=== PATIENT | female | born 1945 | race Asian ===

== ENCOUNTER 2017-01-05 21:44 | Emergency (ER) | payer OTHER ==
[~2017-01-05] VITALS: Ht 154.9 cm; Wt 72.7 kg
[~2017-01-05 21:44] MED LIST: AMLO10TA55 PO
[2017-01-05] MEDS ORDERED: ASPI-1093 PO (21:49)
[2017-01-05] MEDS ORDERED: SIMV20TA6 PO (21:49)
[2017-01-05] MEDS ORDERED: ONDANSETRON HCL 4 MG/2 ML VIAL IVP ONE (22:30)
[2017-01-05] MEDS ORDERED: KETOROLAC TROMETHAMINE 30 MG/ML VIAL IVP ONE (22:30)
[2017-01-05] MEDS ORDERED: HYDROmorphone 2 MG/ML SYRINGE IVP ONE (22:30)
[2017-01-05 22:44] LABS: BASOPHILS # (AUTO) 0.05 K/uL (0.00-0.20); BASOPHILS % (AUTO) 0.6 % (0.0-2.0); EOSINOPHILS # (AUTO) 0.23 K/uL (0.00-0.70); EOSINOPHILS % (AUTO) 2.78 % (1.0-6.0); HEMATOCRIT 42.8 % (36-46); HEMOGLOBIN 14.2 g/dL (12.0-16.0); LYMPHOCYTES # (AUTO) 2.6 K/uL (1.0-4.8); LYMPHOCYTES % (AUTO) 31.7 % (22.0-44.0); MEAN CORPUSCULAR HEMOGLOBIN 30.1 pg (26.0-34.0); MEAN CORPUSCULAR HGB CONC 33.3 G/dL (31.0-37.0); MEAN CORPUSCULAR VOLUME 91 fL (80-100); MONOCYTES # (AUTO) 0.7 K/uL (0.1-1.0); MONOCYTES % (AUTO) 8.9 % (2.0-9.0); NEUTROPHILS # (AUTO) 4.7 K/uL (1.8-7.7); PLATELET COUNT (AUTO) 173 K/uL (150-450); RED BLOOD CELL COUNT(AUTO) 4.72 MIL/uL (4.00-5.20); RED CELL DISTRIBUTION WIDTH 13.8 % (11.5-14.5); WHITE BLOOD COUNT (AUTO) 8.3 K/uL (4.5-11.0)
[2017-01-05 22:57] LABS: BILIRUBIN,TOTAL 0.4 mg/dL (0.1-1.0); CALCIUM, TOTAL 9.9 mg/dL (8.8-10.5); CREATININE 1.07 mg/dL (0.60-1.30); POTASSIUM 2.9 mmol/L (3.5-5.1); TOTAL PROTEIN, SERUM 8.1 g/dL (6.4-8.2)
[2017-01-05] MEDS ORDERED: POTASSIUM CHLORIDE 20 MEQ ER TABLET PO ONE (23:15)
[2017-01-06 01:03] VITALS: BP 116/70
== END 2017-01-06 01:38 | disposition home or self-care (01) ==
LOC: EMS 21:52
DX: S29.012A Strain of muscle and tendon of back wall of thorax, initial encounter (principal); R07.89 Other chest pain; E87.6 Hypokalemia; E78.00 Pure hypercholesterolemia, unspecified; I10 Essential (primary) hypertension; Z79.82 Long term (current) use of aspirin; V49.9XXA Car occupant (driver) (passenger) injured in unspecified traffic accident, initial encounter; Y93.89 Activity, other specified; Y92.89 Other specified places as the place of occurrence of the external cause; Y99.9 Unspecified external cause status
CPT/HCPCS: 29240; 36415; 71010; 73030; 80053; 84484; 85025; 93005; 96374; 96375; 99285; J1170; J1885; J2405

== ENCOUNTER 2019-01-17 07:45 | Emergency (ER) | payer OTHER ==
[~2019-01-17] VITALS: Ht 152.4 cm; Wt 65.9 kg
[~2019-01-17 07:45] MED LIST changes: +ASPI-1182 PO; +SIMV20TA6 PO
[2019-01-17 08:28] LABS: BASOPHILS % (AUTO) 0.8 % (0.0-2.0); HEMATOCRIT 42.8 % (36-46); HEMOGLOBIN 14.4 g/dL (12.0-16.0); LYMPHOCYTES # (AUTO) 1.8 K/uL (1.0-4.8); LYMPHOCYTES % (AUTO) 21.7 % (22.0-44.0); MEAN CORPUSCULAR HEMOGLOBIN 30.4 pg (26.0-34.0); MEAN CORPUSCULAR HGB CONC 33.6 G/dL (31.0-37.0); MEAN CORPUSCULAR VOLUME 91 fL (80-100); MONOCYTES # (AUTO) 0.7 K/uL (0.1-1.0); MONOCYTES % (AUTO) 8.2 % (2.0-9.0); NEUTROPHILS # (AUTO) 5.6 K/uL (1.8-7.7); NEUTROPHILS % (AUTO) 66.3 % (40.0-70.0); PLATELET COUNT (AUTO) 187 K/uL (150-450); RED BLOOD CELL COUNT(AUTO) 4.72 MIL/uL (4.00-5.20); RED CELL DISTRIBUTION WIDTH 14.2 % (11.5-14.5)
[2019-01-17] MEDS ORDERED: ONDANSETRON HCL 4 MG/2 ML VIAL IVP ONE (08:30)
[2019-01-17] MEDS ORDERED: SODIUM CHLORIDE 0.9% 500 ML IV ONE (08:30)
[2019-01-17 09:06] LABS: ALBUMIN 4.2 g/dL (3.4-5.0); BILIRUBIN,TOTAL 0.5 mg/dL (0.1-1.0); CALCIUM, TOTAL 9.6 mg/dL (8.8-10.5); CREATININE 1.01 mg/dL (0.60-1.30); TOTAL PROTEIN, SERUM 8.2 g/dL (6.4-8.2)
[2019-01-17 09:07] LABS: POTASSIUM 2.9 mmol/L (3.5-5.1)
[2019-01-17 09:25] LABS: APPEARANCE,URINE CLEAR (CLEAR); BILIRUBIN,URINE NEGATIVE (NEGATIVE); GLUCOSE, URINE (UA) NEGATIVE (NEGATIVE); KETONES,URINE NEGATIVE (NEGATIVE); LEUKOCYTE ESTERASE ,URINE NEGATIVE (NEGATIVE); NITRATE,URINE NEGATIVE (NEGATIVE); OCCULT BLOOD,URINE TRACE (NEGATIVE); PROTEIN,URINE TRACE (NEGATIVE); UROBILINOGEN,URINE 0.2 mg/dL (<=1.0)
[2019-01-17] MEDS ORDERED: POTASSIUM CHLORIDE 20 MEQ ER TABLET PO ONE (09:30)
[2019-01-17 09:32] LABS: BACTERIA,URINE None Seen /HPF (None Seen); RBC,URINE 0-2 /HPF (0-2); WBC,URINE None Seen /HPF (0-5)
[2019-01-17] MEDS ORDERED: MECLIZINE HCL 25 MG TABLET PO ONE (12:00)
[2019-01-17 13:05] VITALS: BP 107/63
== END 2019-01-17 13:28 | disposition home or self-care (01) ==
LOC: EMS 07:46
DX: R42 Dizziness and giddiness (principal); R11.2 Nausea with vomiting, unspecified; E87.6 Hypokalemia; R05 Cough; E78.00 Pure hypercholesterolemia, unspecified; I10 Essential (primary) hypertension; Z79.82 Long term (current) use of aspirin
CPT/HCPCS: 36415; 70450; 71045; 80053; 81001; 83690; 83880; 84484; 85025; 93005; 96374; 96375; 99285; J2405; J7030

== ENCOUNTER 2022-02-21 21:13 | Emergency (ER) | payer OTHER ==
[~2022-02-21] VITALS: Ht 152.4 cm; Wt 63.6 kg
[~2022-02-21 21:13] MED LIST changes: -ASPI-1182 PO; +ASPI-1444 PO; +SIMV-43 PO; -SIMV20TA6 PO
[2022-02-21] MEDS ORDERED: TraMADol HCL 50 MG TABLET PO ONE (22:30)
[2022-02-21] MEDS ORDERED: ACETAMINOPHEN 500 MG TABLET PO ONE (22:30)
[2022-02-22 00:15] VITALS: BP 122/69
== END 2022-02-22 00:31 | disposition home or self-care (01) ==
LOC: EMS 21:14
DX: M25.532 Pain in left wrist (principal); E78.00 Pure hypercholesterolemia, unspecified; I10 Essential (primary) hypertension
CPT/HCPCS: 99283

== ENCOUNTER 2023-05-21 14:19 | Emergency (ER) | payer OTHER ==
[~2023-05-21] VITALS: Ht 149.9 cm; Wt 68.2 kg
[2023-05-21 14:23] VITALS: TEMP 98.7
[2023-05-21] MEDS ORDERED: ATOR10TA69 PO (14:23)
[2023-05-21] MEDS ORDERED: PROPARACAINE HCL 0.5% 15 ML OPHTHALMIC SOLUTION OS ONE (15:00)
[2023-05-21] MEDS ORDERED: FLUORESCEIN SODIUM 1 MG STRIP OS ONE (15:00)
[2023-05-21] MEDS ORDERED: BACI3.5O18 OS (15:22)
[2023-05-21 15:42] VITALS: BP 139/72; PULSE 79; RESP 16
== END 2023-05-21 15:43 | disposition home or self-care (01) ==
LOC: EMS 14:20
DX: H10.9 Unspecified conjunctivitis (principal); E78.00 Pure hypercholesterolemia, unspecified; I10 Essential (primary) hypertension
CPT/HCPCS: 99283

== ENCOUNTER 2023-07-27 18:14 | Inpatient (IN) | payer OTHER ==
[~2023-07-27] VITALS: Ht 149.9 cm; Wt 64.9 kg
[~2023-07-27 18:14] MED LIST changes: +ATOR10TA69 PO; +BACI3.5O18 OS; -SIMV-43 PO
[2023-07-27] MEDS ORDERED: SIMV10TA97 PO (18:29)
[2023-07-27 19:54] LABS: HEMATOCRIT 44.2 % (36-46); HEMOGLOBIN 15.3 g/dL (12.0-16.0); LYMPHOCYTES # (AUTO) 2.9 K/uL (1.0-4.8); LYMPHOCYTES % (AUTO) 38.5 % (22.0-44.0); MEAN CORPUSCULAR HEMOGLOBIN 30.7 pg (26.0-34.0); MEAN CORPUSCULAR HGB CONC 34.6 G/dL (31.0-37.0); MEAN CORPUSCULAR VOLUME 89 fL (80-100); MONOCYTES # (AUTO) 1.7 K/uL (0.1-1.0); MONOCYTES % (AUTO) 22.6 % (2.0-9.0); NEUTROPHILS # (AUTO) 2.5 K/uL (1.8-7.7); NEUTROPHILS % (AUTO) 32.9 % (40.0-70.0); PLATELET COUNT (AUTO) 223 K/uL (150-450); RED BLOOD CELL COUNT(AUTO) 4.98 MIL/uL (4.00-5.20); RED CELL DISTRIBUTION WIDTH 13.7 % (11.5-14.5); WHITE BLOOD COUNT (AUTO) 7.6 K/uL (4.5-11.0)
[2023-07-27 20:08] LABS: ALBUMIN 4.3 g/dL (3.4-5.0); BILIRUBIN,TOTAL 0.5 mg/dL (0.1-1.0); CALCIUM, TOTAL 10.5 mg/dL (8.8-10.5); CREATININE 1.13 mg/dL (0.60-1.30); TOTAL PROTEIN, SERUM 8.8 g/dL (6.4-8.2)
[2023-07-27 20:10] LABS: POTASSIUM 2.9 mmol/L (3.5-5.1); TROPONIN I-HIGH SENSITIVITY 27 ng/L (<51)
[2023-07-27 20:12] LABS: PLATELET MORPHOLOGY COMMENT LARGE PLTS PRESENT; RBC MORPHOLOGY COMMENT NORMAL RBC MORPH
[2023-07-27] MEDS ORDERED: MAGNESIUM SULFATE 4 GM/WATER 100 ML IV PRN (20:30)
[2023-07-27] MEDS ORDERED: MAGNESIUM SULFATE 2 GM/WATER 50 ML IV PRN (20:30)
[2023-07-27] MEDS: SODIUM CHLORIDE 0.9% 1,000 ML IV SCH (20:30)
[2023-07-27] MEDS ORDERED: MAGNESIUM OXIDE 400 MG TABLET PO PRN (20:30)
[2023-07-27] MEDS ORDERED: ACETAMINOPHEN 325 MG TABLET PO PRN (20:30)
[2023-07-27] MEDS ORDERED: POTASSIUM CHL 10 MEQ/WATER 50 ML IV PRN (20:30)
[2023-07-27] MEDS: ONDANSETRON HCL 4 MG TABLET PO ONE (20:59)
[2023-07-27] MEDS ORDERED: POTASSIUM CHLORIDE 10% 40 MEQ/30 ML LIQUID UDCUP PO ONE (21:00)
[2023-07-27] MEDS: POTASSIUM CHLORIDE 10% 40 MEQ/30 ML LIQUID UDCUP PO ONE ×2 (21:00→23:10)
[2023-07-27] MEDS: SODIUM CHLORIDE 0.9% 1,000 ML IV ONE (21:00)
[2023-07-27] MEDS: DOCUSATE SODIUM 100 MG CAPSULE PO SCH (21:00)
[2023-07-27] MEDS: ACETAMINOPHEN 500 MG TABLET PO ONE (21:00)
[2023-07-27 21:18] LABS: MAGNESIUM 2.1 mg/dL (1.80-2.40)
[2023-07-27 21:50] VITALS: BP 143/64; PULSE 95; RESP 18; TEMP 97.9
[2023-07-27 22:10] LABS: COVID AG,FIA SOURCE NASAL SWAB
[2023-07-27 22:14] LABS: APPEARANCE,URINE CLEAR (CLEAR); BILIRUBIN,URINE NEGATIVE (NEGATIVE); COLOR,URINE COLORLESS (YELLOW); GLUCOSE, URINE (UA) NEGATIVE (NEGATIVE); KETONES,URINE NEGATIVE (NEGATIVE); LEUKOCYTE ESTERASE ,URINE NEGATIVE (NEGATIVE); NITRATE,URINE NEGATIVE (NEGATIVE); OCCULT BLOOD,URINE NEGATIVE (NEGATIVE); PH,URINE 6.5 (5.0-8.0); PROTEIN,URINE NEGATIVE (NEGATIVE); SPECIFIC GRAVITIY, URINE 1.009 (1.003-1.030); UROBILINOGEN,URINE <=1.0 mg/dL (<=1.0)
[2023-07-27 22:29] LABS: SARS-COV2 (COVID) ANTIGEN,FIA Negative (Negative)
[2023-07-27 22:30] VITALS: BP_SYST 126; BP_SYST 131; BP_DIAS 60; BP_DIAS 70; BP_DIAS 72; PULSE 82
[2023-07-27 22:56] LABS: CREATININE,URINE RANDOM 46.7 mg/dL (30.0-125.0)
[2023-07-28] VITALS (7 sets, daily range): BP systolic 105–138; BP diastolic 56–70; PULSE 63–79; RESP 16–19; TEMP 98–98.3
[2023-07-28] MEDS ORDERED: HEPARIN SODIUM,PORCINE 5,000 UNITS/ML VIAL SQ SCH
[2023-07-28 02:17] LABS: TROPONIN I-HIGH SENSITIVITY 29 ng/L (<51)
[2023-07-28 06:52] LABS: BASOPHILS % (AUTO) 0.3 % (0.0-2.0); EOSINOPHILS % (AUTO) 0.2 % (1.0-6.0); HEMATOCRIT 38.8 % (36-46); HEMOGLOBIN 13.1 g/dL (12.0-16.0); LYMPHOCYTES # (AUTO) 2.4 K/uL (1.0-4.8); LYMPHOCYTES % (AUTO) 29.7 % (22.0-44.0); MEAN CORPUSCULAR HEMOGLOBIN 30.4 pg (26.0-34.0); MEAN CORPUSCULAR HGB CONC 33.9 G/dL (31.0-37.0); MEAN CORPUSCULAR VOLUME 90 fL (80-100); MONOCYTES # (AUTO) 0.8 K/uL (0.1-1.0); MONOCYTES % (AUTO) 9.8 % (2.0-9.0); NEUTROPHILS # (AUTO) 4.8 K/uL (1.8-7.7); PLATELET COUNT (AUTO) 190 K/uL (150-450); RED BLOOD CELL COUNT(AUTO) 4.32 MIL/uL (4.00-5.20); RED CELL DISTRIBUTION WIDTH 13.9 % (11.5-14.5)
[2023-07-28 07:17] LABS: ANION GAP 8 mmol/L (8-16); CALCIUM, TOTAL 9.1 mg/dL (8.8-10.5); CARBON DIOXIDE 28 mmol/L (22-29); CHLORIDE 108 mmol/L (98-107); CREATININE 0.86 mg/dL (0.60-1.30); GLOMERULAR FILTR. RATE CALC > 60 mL/min (>60); GLUCOSE,RANDOM 104 mg/dL (70-110); POTASSIUM 3.7 mmol/L (3.5-5.1); SODIUM SERUM 144 mmol/L (136-145); UREA NITROGEN, BLOOD 12 mg/dL (7-18)
[2023-07-28 07:26] LABS: TROPONIN I-HIGH SENSITIVITY 28 ng/L (<51)
[2023-07-28] MEDS: ONDANSETRON HCL 4 MG/2 ML VIAL IVP PRN (08:35)
[2023-07-28] MEDS ORDERED: GADOTERATE MEGLUMINE 10 MMOL/20 ML VIAL IVP ONE (09:06)
[2023-07-28] MEDS: MECLIZINE HCL 25 MG TABLET PO PRN (14:31)
[2023-07-29 01:14] VITALS: BP 106/48; PULSE 64; RESP 18; TEMP 98.3
[2023-07-29 07:13] LABS: ANION GAP 10 mmol/L (8-16); CALCIUM, TOTAL 8.8 mg/dL (8.8-10.5); CARBON DIOXIDE 26 mmol/L (22-29); CHLORIDE 108 mmol/L (98-107); CREATININE 0.89 mg/dL (0.60-1.30); GLOMERULAR FILTR. RATE CALC > 60 mL/min (>60); GLUCOSE,RANDOM 106 mg/dL (70-110); POTASSIUM 3.2 mmol/L (3.5-5.1); SODIUM SERUM 144 mmol/L (136-145); UREA NITROGEN, BLOOD 8 mg/dL (7-18)
[2023-07-29 07:35] VITALS: BP 117/50; PULSE 59; RESP 18; TEMP 98
[2023-07-29] MEDS: POTASSIUM CHLORIDE 20 MEQ ER TABLET PO PRN (09:47)
[2023-07-29 11:21] VITALS: BP 133/68; PULSE 63; RESP 18; TEMP 98
[2023-07-29] MEDS ORDERED: MECL-302 PO (12:58)
[2023-07-29 15:44] VITALS: BP 149/76; PULSE 64; RESP 18; TEMP 98
== END 2023-07-29 17:30 | disposition home or self-care (01) | DRG 48 ==
LOC: EMS 18:18 → 5N 21:08
PROVIDERS: ADMIT Internal Medicine; ATTEND Internal Medicine
DX: G90.8 Other disorders of autonomic nervous system (principal); D18.00 Hemangioma unspecified site; E87.6 Hypokalemia; I10 Essential (primary) hypertension; Z20.822 Contact with and (suspected) exposure to COVID-19; E78.5 Hyperlipidemia, unspecified; E86.0 Dehydration; R25.1 Tremor, unspecified; K52.9 Noninfective gastroenteritis and colitis, unspecified; G93.9 Disorder of brain, unspecified; E78.00 Pure hypercholesterolemia, unspecified; Z82.49 Family history of ischemic heart disease and other diseases of the circulatory system
CPT/HCPCS: 70450; 70553; 71045; 74021; 80048; 80053; 81003; 82570; 83735; 84132; 84300; 84484; 85025; 93005; 97112; 97116; 97162; 99285; J2405; J7030; Q0162; 36415-L1; 36415-TC